=== PATIENT | male | born 1975 | race Caucasian/White ===

== ENCOUNTER 2017-02-13 10:22 | Emergency (ER) | payer OTHER ==
--- NOTE | 2017-02-13 10:24 | EDM.PDOC ---
ED HISTORY OF PRESENT ILLNESS - General Chief Complaint: Chest Pain Stated Complaint: CHEST PAIN Time Seen by Provider: 02/13/17 10:23 Source of Information: Reports: Patient, Family, Old records, RN, RN notes reviewed History Limitations: Reports: No limitations - History of Present Illness INITIAL COMMENTS - FREE TEXT/NARRATIVE: Arrives by POV with c/o recurrent chest pain/pressure with rapid and/or irregular heart rate on/off for a little over a week. Pt saw his PCP in clinic and had "some tests" which didn't show anything, and he was referred for a cardiac stress test for next Thursday. 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 Admits to a mild shortness of breath. Denies radiating pain or edema. 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 - Related Data Allergies/ADRs: Allergies Allergy/AdvReac Type Severity Reaction Status Date / Time No Known Allergies Allergy Verified 02/13/17 10:26 Home Meds: Home Meds Nitroglycerin [Nitrostat] 0.4 mg SL ASDIRECTED 02/13/17 [History] Past Medical History - Past Health History Medical/Surgical History: Denies Medical/Surgical History Social & Family History - Family History Cardiac: Reports: Blood clots/VTE/DVT (Grandfather) - Tobacco Use Smoking Status *Q: Never Smoker Second Hand Smoke Exposure: No - Caffeine Use Caffeine Use: Reports: Coffee - Alcohol Use Alcohol Use History: No - Recreational Drug Use Recreational Drug Use: No - Living Situation & Occupation Living situation: Reports: , with family Occupation: employed ED ROS GENERAL - Review of Systems Review Of Systems: ROS reveals no pertinent complaints other than HPI. ED EXAM, GENERAL - Physical Exam Exam: See Below Exam Limited By: No limitations General Appearance: alert, WD/WN, no apparent distress, obese Eye Exam: bilateral eye: normal inspection Ears: normal external exam, hearing grossly normal Nose: normal inspection, normal mucosa, no blood Throat/Mouth: Normal inspection, Normal lips, Normal teeth, Normal gums, Normal oropharynx, Normal voice, No airway compromise Head: atraumatic, normocephalic Neck: normal inspection, supple, non-tender, full range of motion. No: lymphadenopathy (L), lymphadenopathy (R) Respiratory/Chest: no respiratory distress, lungs clear, normal breath sounds, no accessory muscle use, chest non-tender Cardiovascular: normal peripheral pulses, regular rate, rhythm, no edema, no gallop, no JVD, no murmur, no rub, tachycardia GI/Abdominal: normal bowel sounds, soft, non tender, no organomegaly, no distention, no abnormal bruit (Male) Exam: Deferred Rectal (Males) Exam: Deferred Back Exam: normal inspection Extremities: normal inspection, normal range of motion, non-tender, normal capillary refill, no pedal edema Neurological: alert, oriented, CN II-XII intact, normal cognition, normal gait, no motor/sensory deficits Psychiatric: normal affect, normal mood Skin Exam: Warm, Dry, Intact, Normal color, No rash EKG INTERPRETATION EKG Date: 02/13/17 Time: 10:19 Rhythm: other (Sinus tach) Rate (beats/min): 113 [place]: normal P-wave: present QRS: normal ST-T: normal QT: normal Comparison: NA - no prior EKG EKG Interpretation Comments: No acute ischemic changes. Course - Vital Signs Last Recorded V/S: Last Vital Signs Temp 36.3 C 02/13/17 10:30 Pulse 82 02/13/17 11:33 Resp 18 02/13/17 11:33 BP 111/59 L 02/13/17 11:33 Pulse Ox 98 02/13/17 11:33 - Orders/Labs/Meds Orders: Active Orders 24 hr Category Date Time Status EKG 12 Lead [EKG Documentation Completion] [RC] STAT Care 02/13/17 10:27 Active Peripheral IV Care [RC] . DIRECTED Care 02/13/17 10:27 Active TSH ULTRASENSITIVE [CHEM] Stat Lab 02/13/17 10:28 Received Magnesium Sulfate/Water [Magnesium Sulfate 2 GM in Med 02/13/17 11:42 Active Water 50 ML] 2 gm Premix Bag 1 bag IV ONETIME Sodium Chloride 0.9% [Saline Flush] Med 02/13/17 10:27 Active 10 ml FLUSH ASDIRECTED PRN Peripheral IV Insertion Adult [OM.PC] Stat Oth 02/13/17 10:27 Ordered Medication Orders Magnesium Sulfate 2 gm/ Premix 50 mls @ 25 mls/hr IV ONETIME ONE Stop: 02/13/17 13:41 Last Admin: 02/13/17 11:57 Dose: 25 mls/hr Sodium Chloride (Saline Flush) 10 ml FLUSH ASDIRECTED PRN PRN Reason: Keep Vein Open Last Admin: 02/13/17 11:33 Dose: 10 ml Labs: Laboratory Tests 02/13/17 02/13/17 02/13/17 Range/Units 10:28 10:28 10:28 WBC 7.8 (5.0-10.0) 10^3/uL RBC 4.89 (4.6-6.2) 10^6/uL Hgb 14.0 (14.0-18.0) g/dL Hct 40.6 (40.0-54.0) % MCV 83.0 (80-100) fL MCH 28.6 (27.0-34.0) pg MCHC 34.5 (33.0-35.0) g/dL Plt Count 306 (150-450) 10^3/uL Neut % (Auto) 50.1 (42.2-75.2) % Lymph % (Auto) 37.0 (20.5-50.1) % [place] % (Auto) 7.5 (2-8) % Eos % (Auto) 4.5 H (1.0-3.0) % Baso % (Auto) 0.9 (0.0-1.0) % D-Dimer, Quantitative < 100 (0-400) ng/mL Sodium 135 (135-145) mmol/L Potassium 3.2 L (3.6-5.0) mmol/L Chloride 101 (101-111) mmol/L Carbon Dioxide 23.0 (21.0-31.0) mmol/L Anion Gap 14.2 BUN 16 (7-18) mg/dL Creatinine 1.0 (0.6-1.3) mg/dL Est Cr Clr Drug Dosing 94.05 mL/min Estimated GFR (MDRD) > 60 BUN/Creatinine Ratio 16.00 Glucose 155 H (74-105) mg/dL Calcium 9.0 (8.4-10.2) mg/dl Magnesium 1.7 L (1.8-2.5) mg/dL Total Bilirubin 0.8 (0.2-1.0) mg/dL AST 27 (10-42) IU/L ALT 26 (10-60) IU/L Alkaline Phosphatase 59 (42-121) IU/L Troponin I 0.00 (0.00-0.08) ng/mL Total Protein 7.9 (6.7-8.2) g/dl Albumin 4.8 (3.2-5.5) g/dl Globulin 3.1 Albumin/Globulin Ratio 1.55 Amylase 59 (28-100) U/L Lipase 26 (22-51) U/L Urine Color (YELLOW) Urine Appearance (CLEAR) Urine pH (5.0-9.0) Ur Specific [place] (1.005-1.030) Urine Protein (NEGATIVE) Urine Glucose (UA) (NEGATIVE) Urine Ketones (NEGATIVE) Urine Occult Blood (NEGATIVE) Urine Nitrite (NEGATIVE) Urine Bilirubin (NEGATIVE) Urine Urobilinogen (0.2-1.0) mg/dL Ur Leukocyte Esterase (NEGATIVE) Urine RBC /HPF Urine WBC (0-5/HPF) /HPF Ur Epithelial Cells /HPF Urine Bacteria (0-FEW/HPF) /HPF Urine Mucus /LPF Urine Opiates Screen (NEGATIVE) Ur Oxycodone Screen (NEGATIVE) Urine Methadone Screen (NEGATIVE) Ur Barbiturates Screen (NEGATIVE) U Tricyclic Antidepress (NEGATIVE) Ur Phencyclidine Scrn (NEGATIVE) Ur Amphetamine Screen (NEGATIVE) U Methamphetamines Scrn (NEGATIVE) Urine MDMA Screen (NEGATIVE) U Benzodiazepines Scrn (NEGATIVE) Urine Cocaine Screen (NEGATIVE) U Marijuana (THC) Screen (NEGATIVE) 02/13/17 02/13/17 Range/Units 10:41 10:41 WBC (5.0-10.0) 10^3/uL RBC (4.6-6.2) 10^6/uL Hgb (14.0-18.0) g/dL Hct (40.0-54.0) % MCV (80-100) fL MCH (27.0-34.0) pg MCHC (33.0-35.0) g/dL Plt Count (150-450) 10^3/uL Neut % (Auto) (42.2-75.2) % Lymph % (Auto) (20.5-50.1) % [place] % (Auto) (2-8) % Eos % (Auto) (1.0-3.0) % Baso % (Auto) (0.0-1.0) % D-Dimer, Quantitative (0-400) ng/mL Sodium (135-145) mmol/L Potassium (3.6-5.0) mmol/L Chloride (101-111) mmol/L Carbon Dioxide (21.0-31.0) mmol/L Anion Gap BUN (7-18) mg/dL Creatinine (0.6-1.3) mg/dL Est Cr Clr Drug Dosing mL/min Estimated GFR (MDRD) BUN/Creatinine Ratio Glucose (74-105) mg/dL Calcium (8.4-10.2) mg/dl Magnesium (1.8-2.5) mg/dL Total Bilirubin (0.2-1.0) mg/dL AST (10-42) IU/L ALT (10-60) IU/L Alkaline Phosphatase (42-121) IU/L Troponin I (0.00-0.08) ng/mL Total Protein (6.7-8.2) g/dl Albumin (3.2-5.5) g/dl Globulin Albumin/Globulin Ratio Amylase (28-100) U/L Lipase (22-51) U/L Urine Color Yellow (YELLOW) Urine Appearance Clear (CLEAR) Urine pH 5.5 (5.0-9.0) Ur Specific [place] >= 1.030 (1.005-1.030) Urine Protein 100 H (NEGATIVE) Urine Glucose (UA) 100 H (NEGATIVE) Urine Ketones Negative (NEGATIVE) Urine Occult Blood Negative (NEGATIVE) Urine Nitrite Negative (NEGATIVE) Urine Bilirubin Negative (NEGATIVE) Urine Urobilinogen 1.0 (0.2-1.0) mg/dL Ur Leukocyte Esterase Negative (NEGATIVE) Urine RBC 0-5 /HPF Urine WBC 0-5 (0-5/HPF) /HPF Ur Epithelial Cells Occasional /HPF Urine Bacteria Moderate H (0-FEW/HPF) /HPF Urine Mucus Few H /LPF Urine Opiates Screen Negative (NEGATIVE) Ur Oxycodone Screen Negative (NEGATIVE) Urine Methadone Screen Negative (NEGATIVE) Ur Barbiturates Screen Negative (NEGATIVE) U Tricyclic Antidepress Negative (NEGATIVE) Ur Phencyclidine Scrn Negative (NEGATIVE) Ur Amphetamine Screen Negative (NEGATIVE) U Methamphetamines Scrn Negative (NEGATIVE) Urine MDMA Screen Negative (NEGATIVE) U Benzodiazepines Scrn Negative (NEGATIVE) Urine Cocaine Screen Negative (NEGATIVE) U Marijuana (THC) Screen Negative (NEGATIVE) Meds: Medications Generic Name Dose Route Start Last Admin Trade Name Freq PRN Reason Stop Dose Admin Magnesium Sulfate 2 gm/ Premix 50 mls @ 25 mls/hr 02/13/17 11:42 02/13/17 11: 57 IV 02/13/17 13:41 25 mls/hr ONETIME ONE Administration Sodium Chloride 10 ml 02/13/17 10:27 02/13/17 11:33 Saline Flush FLUSH 10 ml ASDIRECTED PRN Administration Keep Vein Open Discontinued Medications Generic Name Dose Route Start Last Admin Trade Name Freq PRN Reason Stop Dose Admin Aspirin 324 mg 02/13/17 10:27 02/13/17 11:32 Aspirin PO 02/13/17 10:28 324 mg ONETIME ONE Administration Iopamidol 100 ml 02/13/17 10:34 02/13/17 10:47 Isovue-370 (76%) IVPUSH 02/13/17 10:35 78 ml ONETIME ONE Administration Potassium Chloride 40 meq 02/13/17 11:41 02/13/17 12:00 Klor-Con 10 PO 02/13/17 11:42 40 meq ONETIME ONE Administration - Radiology Interpretation Free Text/Narrative:: CT Chest: no PE per Rad. report. CT Results Date: 02/13/17 - Re-Assessments/Exams Free Text/Narrative Re-Assessment/Exam: 02/13/17 13:28 I explained the exam findings, results of all diagnostic tests, working diagnosis, and any potential or additionally considered diagnoses, treatment/ disposition plan, self/home care instructions, rational for the diagnosis/ treatment plan/disposition plan, anticipated course of illness, and follow up instructions to the pt and/or pts family or guardian. The pt and/or pts family or guardian acknowledges understanding of the above explanation(s), and of the signs and symptoms which should prompt the return of the pt to the ER should those or any other concerning symptoms develop. Departure - Departure Time of Disposition: 13:29 Disposition: Home, Self-Care 01 Condition: good Clinical Impression: Sinus tachycardia, Hyperglycemia, Hypokalemia, Hypomagnesemia Chest pain Qualifiers: Chest pain type: unspecified Qualified Code(s): R07.9 - Chest pain, unspecified Instructions: Nonspecific Chest Pain, [id number], Hyperglycemia, Hypokalemia , Hypomagnesemia Forms: ED Department Discharge Additional Instructions: Diet rich in high magnesium and potassium foods. Reference [email or web address] to help with food choices. Follow up in clinic with your doctor next week for recheck of chest symptoms, blood sugar, and potassium and magnesium levels. Return to ER if worse at any time. - My Orders Last 24 Hours: My Active Orders 02/13/17 10:27 EKG 12 Lead [EKG Documentation Completion] [RC] STAT Peripheral IV Care [RC] . DIRECTED Sodium Chloride 0.9% [Saline Flush] 10 ml FLUSH ASDIRECTED PRN Peripheral IV Insertion Adult [OM.PC] Stat 02/13/17 10:28 TSH ULTRASENSITIVE [CHEM] Stat 02/13/17 11:42 Magnesium Sulfate/Water [Magnesium Sulfate 2 GM in Water 50 ML] 2 gm Premix Bag 1 bag IV ONETIME - Assessment/Plan Last 24 Hours: My Active Orders 02/13/17 10:27 EKG 12 Lead [EKG Documentation Completion] [RC] STAT Peripheral IV Care [RC] . DIRECTED Sodium Chloride 0.9% [Saline Flush] 10 ml FLUSH ASDIRECTED PRN Peripheral IV Insertion Adult [OM.PC] Stat 02/13/17 10:28 TSH ULTRASENSITIVE [CHEM] Stat 02/13/17 11:42 Magnesium Sulfate/Water [Magnesium Sulfate 2 GM in Water 50 ML] 2 gm Premix Bag 1 bag IV ONETIME
[2017-02-13] MEDS ORDERED: Aspirin 81 MG Tab.Chew PO ONE (10:27)
[2017-02-13] MEDS ORDERED: Sodium Chloride 0.9% 10 ML Syringe FLUSH PRN (10:27)
[2017-02-13] MEDS ORDERED: Iopamidol 755 Mg/ML 100 ML Bottle IVPUSH ONE (10:34)
[2017-02-13 10:57] LABS: CHLORIDE,CL 101 mmol/L (101-111); SODIUM,NA 135 mmol/L (135-145)
[2017-02-13 11:34] VITALS: BP 111/59
[2017-02-13] MEDS ORDERED: Potassium Chloride 10 MEQ Tab.ER PO ONE (11:41)
[2017-02-13] MEDS ORDERED: Magnesium Sulfate/Water 2 GM in Premix Bag 1 BAG IV ONE (11:42)
--- NOTE | 2017-03-10 11:33 | EKG ---
02/13/2017- ERNESTINA ERWIN - EKG per my reading, shows sinus tachycardia at the rate of 113. [facility] /[id number]
== END 2017-02-13 13:49 | disposition home or self-care (01) ==
LOC: DL.ED 10:22
DX: R07.9 Chest pain, unspecified (principal); R00.0 Tachycardia, unspecified; R73.9 Hyperglycemia, unspecified; E87.6 Hypokalemia; E83.42 Hypomagnesemia
CPT/HCPCS: 36415; 71260; 80053; 80305; 81001; 82150; 83690; 83735; 84443; 84484; 85025; 85379; 93005; 96365; 96366; 99285; A9270; J7050; Q9967; J3475